=== PATIENT | male | born 1975 | race Caucasian/White ===

== ENCOUNTER 2024-09-18 16:15 | Outpatient (CLI) | payer OTHER, SELFPAY ==
--- NOTE | ~2024-09-18 | US_ITS ---
LEFT LOWER EXTREMITY VENOUS ULTRASOUND Ordering provider: Tonia Horn, SUPERINTENDENT SERVICE History: . pain of lt calf . Comparison: None. FINDINGS: --COMMON FEMORAL: Patent and free of thrombus. Normal compressibility, phasic flow and augmentation. --PROXIMAL SUPERFICIAL FEMORAL: Patent and free of thrombus. Normal compressibility, phasic flow and augmentation. --DISTAL SUPERFICIAL FEMORAL: Patent and free of thrombus. Normal compressibility, phasic flow and au gmentation. --POPLITEAL: Patent and free of thrombus. Normal compressibility, phasic flow and augmentation. --POSTERIOR TIBIAL: Patent and free of thrombus. Normal compressibility, phasic flow and augmentation . IMPRESSION: Negative left lower extremity venous US. No deep vein thrombosis. Reviewed, dictated and finalized at location A. [employer] APPLIANCE MECHANIC
--- NOTE | ~2024-09-18 | XR_ITS ---
XR tibia fibula LT 2V Ordering provider: Tonia Horn, OUTSOLE HANDLER History: . ASTHMA WO COMPLICATION . Comparison: None. FINDINGS: BONES: No acute fracture or dislocation. JOINT SPACES: Normal. SOFT TISSUES: Normal. IMPRESSION: No acute osseous abnormality left leg. Reviewed, dictated and finalized at location A. WASHER HAND
--- NOTE | ~2024-09-18 | XR_ITS ---
XR chest 2V Ordering provider: Tonia Horn, PLASTIC BATTERY ASSEMBLER History: 49 years Male with . ASTHMA WO COMPLICATION . Comparison: None. FINDINGS: MEDIASTINUM: The cardiac silhouette is not enlarged. LUNGS: No infiltrates, effusions or pneumothorax. OTHER: No free air under the diaphragm. IMPRESSION: Reviewed, dictated and finalized at location A. ETICS AND TOILETRIES SALESPERSON IMPRESSION:
== END 2024-09-18 16:16 | disposition home or self-care (01) ==
LOC: ANHIMG 16:33
PROVIDERS: PCP Internal Medicine Infectious Disease; Visit Provider Nurse Practitioner Adult Health
DX: M79.662 Pain in left lower leg (principal); J45.20 Mild intermittent asthma, uncomplicated
CPT/HCPCS: 71046; 73590; 93971